=== PATIENT | female | born 1985 | race Caucasian/White ===

== ENCOUNTER 2016-05-23 22:31 | Emergency (ER) | payer OTHER ==
[~2016-05-23] VITALS: Ht 160 cm; Wt 84.9 kg
[~2016-05-23 22:31] MED LIST: ANUSOL-HC21 GM PR; KEFLEX500 MG PO; MOTRIN800 MG PO; NAPROXEN500 MG PO; PERCOCET 5/31 TABLET PO; PRENATAL TABLE1 EAC3 PO; ULTRACET1 TABLET PO; ULTRAM50 MG PO; VALIUM2 MG PO; VALIUM5 MG PO; ZYRTEC10 M2 PO
[2016-05-24] MEDS ORDERED: MEDROL DOSEPAK4 MG PO (00:26)
[2016-05-24] MEDS ORDERED: ROBITUSSIN AC,T10 ML PO (00:26)
[2016-05-24] MEDS ORDERED: PROAIR HFA8.5 GM IH (00:26)
[2016-05-24 00:32] VITALS: BP 152/94
== END 2016-05-24 00:33 | disposition home or self-care (01) ==
LOC: EME 22:31
DX: R09.1 Pleurisy (principal); J40 Bronchitis, not specified as acute or chronic
CPT/HCPCS: 71020; 99281; 99283

== ENCOUNTER 2016-06-19 23:24 | Emergency (ER) | payer OTHER ==
[~2016-06-19] VITALS: Ht 160 cm; Wt 88.1 kg
[~2016-06-19 23:24] MED LIST changes: +MEDROL DOSEPAK4 MG PO; +PROAIR HFA8.5 GM IH; +ROBITUSSIN AC,T10 ML PO
[2016-06-19] MEDS ORDERED: PEN-VEE K,VEET500 MG PO (23:47)
[2016-06-20 00:16] VITALS: BP 142/99
== END 2016-06-20 00:17 | disposition home or self-care (01) ==
LOC: EME 23:24 → RME 23:24
DX: K04.7 Periapical abscess without sinus (principal); K02.9 Dental caries, unspecified; K03.81 Cracked tooth; F17.200 Nicotine dependence, unspecified, uncomplicated
CPT/HCPCS: 99281; 99283

== ENCOUNTER 2016-07-18 00:11 | Emergency (ER) | payer OTHER ==
[~2016-07-18] VITALS: Ht 160 cm; Wt 82.0 kg
[~2016-07-18 00:11] MED LIST changes: +PEN-VEE K,VEET500 MG PO
[2016-07-18] MEDS ORDERED: MEDROL DOSEPAK4 MG PO (01:38)
[2016-07-18] MEDS ORDERED: FLEXERIL10 MG PO (01:38)
[2016-07-18] MEDS ORDERED: NORCO 5/3251 TABLET PO (01:38)
[2016-07-18 01:54] VITALS: BP 143/103
== END 2016-07-18 01:56 | disposition home or self-care (01) ==
LOC: EXP 00:11 → EME 00:11 → EXP 01:56
DX: M54.41 Lumbago with sciatica, right side (principal); F17.200 Nicotine dependence, unspecified, uncomplicated
CPT/HCPCS: 99281; 99283; J7512

== ENCOUNTER 2016-09-17 20:48 | Emergency (ER) | payer OTHER ==
[~2016-09-17] VITALS: Ht 157.5 cm; Wt 91.0 kg
[~2016-09-17 20:48] MED LIST changes: +FLEXERIL10 MG PO; +NORCO 5/3251 TABLET PO
[2016-09-17] MEDS ORDERED: ULTRAM50 MG PO (21:39)
[2016-09-17 21:47] VITALS: BP 142/100
== END 2016-09-17 21:52 | disposition home or self-care (01) ==
LOC: EME 20:48
DX: S83.92XA Sprain of unspecified site of left knee, initial encounter (principal); F17.200 Nicotine dependence, unspecified, uncomplicated
CPT/HCPCS: 73564; 99281; 99283